=== PATIENT | male | born 1965 | race Caucasian/White ===

== ENCOUNTER 2020-06-01 23:07 | Emergency (ER) | payer BC ==
[2020-06-01 23:55] LABS: CHLORIDE,CL 105 mmol/L (98-107); SODIUM,NA 139 mmol/L (136-145)
--- NOTE | 2020-06-02 00:16 | EDM.PDOC ---
ED HPI GENERAL MEDICAL PROBLEM - General Chief Complaint: Upper Extremity Injury/Pain Stated Complaint: left arm numbness Time Seen by Provider: 06/01/20 23:35 Source of Information: Reports: Patient History Limitations: Reports: No Limitations - History of Present Illness INITIAL COMMENTS - FREE TEXT/NARRATIVE: Patient comes to ER with 2+ week history of left upper arm pain/chest discomfort in axillary area. No specific injury triggered pain. No history of similar pain in past. Pain has gradually been getting worse. Now sometimes has numbness sensation in upper arm/anteriorly. Pain is worse when he raises his arm over his head and with palpation over certain areas. Was worried that it could be due to his heart so he came in to the ER tonight. His plan is to follow up with Ortho if ER workup checks out ok. Only other chronic issues are cystic fibrosis (in good control) and has been told his kidneys are a little slow. 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 Denies fever/chills/rashes/sweats. No swelling of arm. No other new pain complaint. No cough/wheezing/sob/respiratory changes. Pain does not radiate anywhere else. No palpitations/central chest pain No GI changes/nausea/emesis/abdominal pain/bowel changes. No urinary changes. No pain in other limbs. 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 Left Upper Arm Pain Score (Numeric/FACES): 2 - Related Data Allergies Allergy/AdvReac Type Severity Reaction Status Date / Time No Known Allergies Allergy Verified 06/01/20 23:08 Home Meds: Home Meds Amylase/Lipase/Protease [Rebel LANTIGUA 12,000 Units] 5 cap PO ASDIRECTED 06/01/20 [History] Azithromycin 1 tab PO ASDIRECTED 06/01/20 [History] Elexacaftor/Tezacaftor/Ivacaft [Trikafta 100/50/75 mg-150 mg] 1 tab PO BID 06/01/20 [History] Ergocalciferol (Vitamin D2) [Vitamin D2] 1 cap PO WEEKLY 06/01/20 [History] Ibuprofen [Advil Liqui-Gels] 2 - 3 tab PO Q6HR PRN 06/01/20 [History] Past Medical History Respiratory History: Reports: Cystic Fibrosis Gastrointestinal History: Reports: Bowel Obstruction Genitourinary History: Reports: Other (See Below) (Mild elevation BUN/Cr) - Infectious Disease History Infectious Disease History: Reports: Chicken Pox - Past Surgical History GI Surgical History: Reports: Appendectomy, Other (See Below) Musculoskeletal Surgical History: Reports: Shoulder Surgery Social & Family History - Tobacco Use Tobacco Use Status *Q: Never Tobacco User Second Hand Smoke Exposure: No - Caffeine Use Caffeine Use: Reports: Coffee, Soda Review of Systems - Review of Systems Review Of Systems: Comprehensive ROS is negative, except as noted in HPI. ED EXAM, GENERAL - Physical Exam Exam: See Below Exam Limited By: No Limitations General Appearance: Alert, WD/WN, No Apparent Distress Eye Exam: Bilateral Eye: EOMI, PERRL Ears: Hearing Grossly Normal Nose: No: Nasal Deformity, Nasal Swelling, Nasal Drainage Throat/Mouth: Normal Lips, Normal Voice, No Airway Compromise Head: Atraumatic, Normocephalic Neck: Supple, Non-Tender, Full Range of Motion. No: Lymphadenopathy (L), Lymphadenopathy (R) Respiratory/Chest: No Respiratory Distress, Lungs Clear, Normal Breath Sounds, No Accessory Muscle Use, Other (chest tender lateral left chest under axilla/reproduces patient's pain complaint. ) Cardiovascular: Regular Rate, Rhythm, No Edema, No Murmur GI/Abdominal: Soft, Non-Tender, No Distention (Male) Exam: Deferred Rectal (Males) Exam: Deferred Back Exam: No: CVA Tenderness (L), CVA Tenderness (R), Muscle Spasm, Paraspinal Tenderness, Vertebral Tenderness Extremities: Normal Range of Motion, Normal Capillary Refill, Other (mild tenderness proximal biceps tendon/partly reproduces patient's pain complaint. ). No: Increased Warmth, Mottled, Pallor, Redness Neurological: Alert, Oriented, Normal Cognition, Normal Gait, No Motor/Sensory Deficits Psychiatric: Normal Affect, Normal Mood Skin Exam: Warm, Dry, Intact, Normal Color, No Rash #1 Interpretation EKG Date: 06/01/20 Time: 23:31 Rhythm: NSR Rate (Beats/Min): 63 [place]: Normal P-Wave: Present QRS: Normal ST-T: Normal QT: Normal Comparison: NA - No Prior EKG Course - Vital Signs Last Recorded V/S: Last Vital Signs Temp 36.1 C 06/01/20 23:08 Pulse 64 04/26/21 23:08 Resp 18 06/01/20 23:08 BP 141/85 H 06/01/20 23:08 Pulse Ox 96 06/01/20 23:08 - Orders/Labs/Meds Orders: Active Orders 24 hr Category Date Time Status EKG Documentation Completion [RC] ASDIRECTED Care 06/01/20 23:21 Active Chest 2V [CR] Stat Exams 06/01/20 23:21 Taken Labs: Laboratory Tests 06/01/20 06/01/20 Range/Units 23:34 23:34 WBC 10.1 (4.0-10.2) K/uL RBC 4.72 (4.33-5.41) M/uL Hgb 14.8 (13.1-16.8) g/dL Hct 43.8 (39.0-49.0) % MCV 92.8 (84.0-98.0) fL MCH 31.4 (28.2-33.3) pg MCHC 33.8 (31.7-36.0) g/dL RDW 14.0 (11.2-14.1) % Plt Count 237 (150-350) K/uL Neut % (Auto) 57.4 (45.0-80.0) % Lymph % (Auto) 27.4 (10.0-50.0) % [place] % (Auto) 10.7 (2.0-14.0) % Eos % (Auto) 4.1 (0.0-5.0) % Baso % (Auto) 0.4 (0.0-2.0) % Neut # (Auto) 5.78 (1.40-7.00) K/uL Lymph # (Auto) 2.76 (0.50-3.50) K/uL [place] # (Auto) 1.08 H (0.00-1.00) K/uL Eos # (Auto) 0.41 (0.00-0.50) K/uL Baso # (Auto) 0.04 (0.00-0.20) K/uL Sodium 139 (136-145) mmol/L Potassium 3.7 (3.5-5.1) mmol/L Chloride 105 (98-107) mmol/L Carbon Dioxide 26.5 (21.0-32.0) mmol/L BUN 22 H (7-18) mg/dL Creatinine 1.44 H (0.51-1.17) mg/dL Est Cr Clr Drug Dosing TNP Estimated GFR (MDRD) 51 mL/min Glucose 140 H (70-99) mg/dL Calcium 8.4 L (8.5-10.1) mg/dL Magnesium 1.8 (1.8-2.4) mg/dL Total Bilirubin 0.5 (0.2-1.0) mg/dL AST 20 (15-37) U/L ALT 44 (12-78) U/L Alkaline Phosphatase 55 (46-116) IU/L Troponin I 0.000 (0.000-0.056) ng/mL Total Protein 6.5 (6.4-8.2) g/dL Albumin 3.4 (3.4-5.0) g/dL - Radiology Interpretation Free Text/Narrative:: Chest xray PA and Lateral performed. No acute changes noted on PA view. Lateral view shows some changes in lower lung that likely reflect patient's CF/chronic lung disease. Pending formal Radiology review. - Re-Assessments/Exams Free Text/Narrative Re-Assessment/Exam: 06/02/20 00:32 Labs overall unremarkable, including troponin. Mild elevation BUN/Cr and glucose. EKG normal. Chest xray as noted above. Patient does have CF and doctors at [facility]. [facility] will have comparison views available. Pain complaint/pattern not suggestive of lung/CV etiology. It has been several weeks since it started and no rash noted so do not suspect shingles prodrome. Suspicion is that it is musculoskeletal based on character/reproduction of complaint with palpation and movement. Plan at this time is to give patient bottle of Tramadol for PRN use at night to help him sleep. He declined pain meds. He plans to follow up with Ortho walk in at [facility]. Precautions reviewed. To return to ER for re-evaluation if symptoms worsen/new symptoms develop. Departure - Departure Time of Disposition: 00:15 Disposition: Home, Self-Care 01 Condition: Good Clinical Impression: Chest pain, atypical, Left upper arm pain - Discharge Information *PRESCRIPTION DRUG MONITORING PROGRAM REVIEWED*: Not Applicable *COPY OF PRESCRIPTION DRUG MONITORING REPORT IN PATIENT MANISHA: Not Applicable Instructions: Tendinitis, [id number], Chest Wall Pain Referrals: PCP,Unknown [Primary Care Provider] - Forms: ED Department Discharge Additional Instructions: OK to take Tramadol one tab before bed to help you sleep. OK to use CBD oil. Recommend follow up with Ortho walk in as discussed for better exam of the pain complaint and additional workup as needed. Return to the ER for recheck if new worsening symptoms develop such as breathing difficulties/arm swelling. Sepsis Event Note (ED) - Evaluation Sepsis Screening Result: No Definite Risk - Focused Exam Vital Signs: Vital Signs Temp Pulse Resp BP Pulse Ox 06/01/20 23:08 36.1 C 64 18 141/85 H 96 - My Orders Last 24 Hours: My Active Orders 06/01/20 23:21 EKG Documentation Completion [RC] ASDIRECTED Chest 2V [CR] Stat - Assessment/Plan Last 24 Hours: My Active Orders 06/01/20 23:21 EKG Documentation Completion [RC] ASDIRECTED Chest 2V [CR] Stat
== END 2020-06-02 00:23 | disposition home or self-care (01) ==
LOC: LL.ED 23:07
DX: R07.89 Other chest pain (principal); M79.622 Pain in left upper arm
CPT/HCPCS: 36415; 71046; 80053; 83735; 84484; 85025; 93005; 93010; 99283; 99285-25